=== PATIENT | male | born 1995 | race Caucasian/White ===

== ENCOUNTER 2017-08-14 11:53 | Emergency (ER) | payer MEDICAID ==
[~2017-08-14] VITALS: Wt 80.1 kg
[~2017-08-14 11:53] MED LIST: AZIT250T94 PO; CIPR500T4 PO; DICY20TA59 PO; DOCU-144 PO; FAMO-96 PO; HYDR-906 PO; IBUP-1542 PO; METR500T PO; NORC 5-325 PO; ONDA4TAB14 PO; OXYC-281 PO
[2017-08-14] MEDS ORDERED: IBUPROFEN 600 MG TAB PO ONE (12:30)
--- NOTE | 2017-08-14 12:37 | ERD ---
ER Documentation Chief Complaint Chief Complaint CHEST WALL PAIN X2 WEEKS HPI 21-year-old male who states that he is otherwise healthy with no prior medical history comes to emergency department with midsternal chest pain that started a week ago. The patient states that is right in the center of his chest pain to the sternum, described as sharp and achy and worse when he moves or takes a deep breath in or out. The pain is nonradiating, and exertional and the fact that it is worse if he tries to move. He has not had any fevers, chills, chest pain, shortness of breath. Patient denies IV drug abuse. ROS All systems reviewed and are negative except as per history of present illness. Medications Home Meds Active Scripts Ibuprofen* (Motrin*) 600 Mg Tab, 600 MG PO Q6, #30 TAB Prov:BLAIR JUDD PA-C 08/14/17 Ondansetron (Ondansetron Odt) 4 Mg Tab.rapdis, 4 MG PO Q8 Y for NAUSEA AND/OR VOMITING, #30 TAB Prov:LAURITA LOREDO NP 06/25/16 Metronidazole* (Flagyl*) 500 Mg Tablet, 500 MG PO TID for 10 Days, TAB Prov:BERNICEISLAURITA HARRINGTON NP 16 Ciprofloxacin Hcl* (Ciprofloxacin Hcl*) 500 Mg Tablet, 500 MG PO BID for 10 Days , TAB Prov:LAURITA LOREDO NP 16 Hydrocodone/Acetaminophen (Jasper 5-325 Tablet) 1 Each Tablet, 1 TAB PO Q6H Y for PAIN, #20 TAB Prov:LAURITA LOREDO NP 06/25/16 Ibuprofen* (Motrin*) 600 Mg Tab, 600 MG PO Q6H Y for PAIN AND OR ELEVATED TEMP, #30 TAB Prov:LAURITA LOREDO NP 16 Dicyclomine Hcl* (Bentyl*) 20 Mg Tablet, 20 MG PO QID, #20 TAB Prov:LAURITA LOREDO NP 06/25/16 Azithromycin* (Zithromax*) 250 Mg Tablet, 250 MG PO .AngiePACK DIRECTED, #6 TAB TAKE 500 MG (2 TABS) THE FIRST DAY THEN 250 MG (1 TAB) DAYS 2-5 Prov:BLAIR JUDD PA-C 10/04/15 Metronidazole* (Flagyl*) 500 Mg Tablet, 500 MG PO Q8 for 10 Days, TAB 0 Refills Prov:ISA FRIED. 04/18/14 Ciprofloxacin Hcl* (Ciprofloxacin Hcl*) 500 Mg Tablet, 500 MG PO BID for 10 Days , TAB 0 Refills Prov:ISA FRIED. 04/18/14 Docusate Sodium* (Colace*) 100 Mg Capsule, 100 MG PO BID, #60 CAP 0 Refills Prov:ISA FRIED. 04/18/14 Hydrocodone Bit-Acetaminophen* (Jasper*) 5-325 Tablet, 1 TAB PO Q4 for PAIN, #18 TAB 0 Refills Prov:ISA FRIED. 04/18/14 Reported Medications Famotidine* (Pepcid*) 20 Mg Tablet, 20 MG PO DAILY, TAB 04/16/14 Oxycodone Hcl-Acetaminophen* (Percocet*) 5-325 Mg Tablet, 1 TAB PO Q4H Y for PAIN LEVEL 6-10, TAB 04/16/14 Allergies Allergies: Coded Allergies: No Known Allergy (Unverified , 12/14/14) PMhx/Soc History of Surgery: Yes (cholecystectomy) Anesthesia Reaction: No Hx Neurological Disorder: No Hx Respiratory Disorders: No Hx Cardiac Disorders: No Hx Psychiatric Problems: No Hx Miscellaneous Medical Probl: No Hx Alcohol Use: No Hx Substance Use: No Hx Tobacco Use: No Physical Exam Vitals Vital Signs Date Time Temp Pulse Resp B/P Pulse Ox O2 Delivery O2 Flow Rate FiO2 08/14/17 11:55 97.3 74 18 136/79 98 Physical Exam General: Well-developed, well-nourished. The patient appears in no acute distress. HEENT: Head is normocephalic, atraumatic. No scleral icterus. Neck: Supple. Nontender. Lungs: Clear to auscultation. Normal air movement. Midsternal chest wall tenderness with palpation. No masses, no skin changes. Heart: Regular rate and rhythm. S1 and S2 are normal. No murmurs, gallops, or rubs. Abdomen: Soft, nontender, nondistended. Bowel sounds are normoactive. Extremities: No clubbing or cyanosis. Normal pulses. Moving extremities x 4. No weakness. Neurologic: Alert and oriented 3. No focal deficits. Skin: Normal turgor. No rash or lesions. Result Diagram: 08/14/17 1250 08/14/17 1250 Results 24 hrs Laboratory Tests Test 08/14/17 12:50 White Blood Count 7.210^3/ul Red Blood Count 5.7210^6/ul Hemoglobin 16.4g/dl Hematocrit 49.4% Mean Corpuscular Volume 86.4fl Mean Corpuscular Hemoglobin 28.7pg Mean Corpuscular Hemoglobin Concent 33.2g/dl Red Cell Distribution Width 13.4% Platelet Count 36082^3/UL Mean Platelet Volume 10.0fl Neutrophils % 59.6% Lymphocytes % 28.6% Monocytes % 7.2% Eosinophils % 3.6% Basophils % 0.6% Nucleated Red Blood Cells % 0.0/100WBC Neutrophils # 4.310^3/ul Lymphocytes # 2.110^3/ul Monocytes # 0.510^3/ul Eosinophils # 0.310^3/ul Basophils # 0.010^3/ul Nucleated Red Blood Cells # 0.010^3/ul Sodium Level 143mmol/L Potassium Level 4.1mmol/L Chloride Level 102mmol/L Carbon Dioxide Level 28mmol/L Anion Gap 17 Blood Urea Nitrogen 8mg/dl Creatinine 0.92mg/dl Glucose Level 107mg/dl Calcium Level 9.7mg/dl Troponin I < 0.012ng/ml Current Medications Medications (Trade) Dose Ordered Sig/Diamond Route PRN Reason Start Time Stop Time Status Last Admin Dose Admin Ibuprofen (Motrin) 600 mg ONCE ONCE PO 08/14/17 12:30 08/14/17 12:31 DC 08/14/17 12:36 12-lead EKG(interpreted by supervising physician): reviewed by Dr. Mckeon Rate/Rhythm: Normal Sinus Rhythm, with a rate of 67 QRS, ST, T-waves: Inverted T waves in leads III and aVF., no intervals, no dysrhythmias, no ectopy Impression: No evidence of ischemia or arrhythmia DIAGNOSTIC IMAGING REPORT Patient: JUNIOR NEDRA : 1995 Age: 21 Sex: M MR #: [id number] DOS: 08/14/17 1215 Ordering MD: BLAIR JUDD PA-C Location: [facility] Room/Bed: PROCEDURE: XR Chest. CLINICAL INDICATION: Chest pain, cough TECHNIQUE: Single frontal view of the chest was obtained COMPARISON: None FINDINGS: The heart and mediastinum are within normal limits. The lungs are clear. There is no pleural effusion or pneumothorax. The bones and soft tissue show no acute change. IMPRESSION: No definite abnormalities are identified. RPTAT:AAJJ Blane Garcia, Physician Date Time Electronically viewed and signed by Blane Garcia Physician on 08/14/2017 12: 56 [facility]/ CC: BLAIR JUDD PA-C Procedures/MDM ED COURSE: Patient was given ibuprofen for pain. MEDICAL DECISION MAKIN-year-old male comes emergency department with midsternal chest pain for 1 week, the patient's chest pain appears to be most likely musculoskeletal. It is in the center of his chest over the sternum and is reproducible with palpation. There are no skin changes, signs of infection. The patient's EKG is not concerning for acute ischemia, troponin is negative and chest x-ray is normal. There is no evidence of pneumothorax, pneumonia. Suspicion for pericarditis, endocarditis, myocarditis, dissection, acute coronary syndrome is low. Patient denies any history of fever, or cough. 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 He was given ibuprofen in the emergency department, I reevaluated him he states that his pain is much better at this time. He will be continued on ibuprofen, and advised to avoid lifting anything heavy for the next week. Departure Diagnosis: Primary Impression: Chest wall pain Condition: Good BLAIR JUDD PA-C Aug 14, 2017 12:37
--- NOTE | 2017-08-14 12:56 | RADRPT ---
PROCEDURE: XR Chest. CLINICAL INDICATION: Chest pain, cough TECHNIQUE: Single frontal view of the chest was obtained COMPARISON: None FINDINGS: The heart and mediastinum are within normal limits. The lungs are clear. There is no pleural effusion or pneumothorax. The bones and soft tissue show no acute change. IMPRESSION: No definite abnormalities are identified. RPTAT:AAJJ Blane Garcia Physician Date Time Electronically viewed and signed by Blane Garcia Physician on 08/14/2017 12:56 /
[2017-08-14 13:07] LABS: BASOPHILS % 0.6 % (0.0-2.0); EOSINOPHILS # 0.3 10^3/ul (0.0-0.5); EOSINOPHILS % 3.6 % (0.0-7.0); HEMATOCRIT 49.4 % (42.0-52.0); HEMOGLOBIN 16.4 g/dl (14.0-18.0); LYMPHOCYTES # 2.1 10^3/ul (0.8-2.9); LYMPHOCYTES % 28.6 % (15.0-51.0); MEAN CORPUSCULAR HEMOGLOBIN 28.7 pg (29.0-33.0); MEAN CORPUSCULAR HGB CONC 33.2 g/dl (32.0-37.0); MEAN CORPUSCULAR VOLUME 86.4 fl (82.0-101.0); MONOCYTE # 0.5 10^3/ul (0.3-0.9); MONOCYTES % 7.2 % (0.0-11.0); NEUTROPHIL # 4.3 10^3/ul (1.6-7.5); NEUTROPHILS % 59.6 % (39.0-77.0); PLATELET COUNT 329 10^3/UL (140-415); RED BLOOD COUNT 5.72 10^6/ul (4.70-6.10); RED CELL DISTRIBUTION WIDTH 13.4 % (11.5-14.5); WHITE BLOOD COUNT 7.2 10^3/ul (4.8-10.8)
[2017-08-14 13:24] LABS: ANION GAP 17 (8-16); BLOOD UREA NITROGEN 8 mg/dl (7-20); CALCIUM 9.7 mg/dl (8.4-10.2); CARBON DIOXIDE 28 mmol/L (21-31); CHLORIDE 102 mmol/L (97-110); CREATININE 0.92 mg/dl (0.61-1.24); GLUCOSE 107 mg/dl (70-220); POTASSIUM 4.1 mmol/L (3.5-5.1); SODIUM 143 mmol/L (135-144)
[2017-08-14 13:42] LABS: TROPONIN-I < 0.012 ng/ml (0.00-0.12)
[2017-08-14] MEDS ORDERED: IBUP-1542 PO (13:57)
== END 2017-08-14 14:06 | disposition home or self-care (01) ==
LOC: FTE 11:53
DX: R07.2 Precordial pain (principal)
CPT/HCPCS: 36415; 71010; 80048; 84484; 85025; Z7502; Z7610

== ENCOUNTER 2019-04-21 14:45 | Emergency (ER) | payer SELFPAY ==
[~2019-04-21] VITALS: Ht 162.6 cm; Wt 83.9 kg
[~2019-04-21 14:45] MED LIST changes: +AZIT250T PO; -AZIT250T94 PO; +CYCL10TA7 PO; +HYDR-4011 PO; -HYDR-906 PO; +IBUP800T48 PO
[2019-04-21 14:51] VITALS: BP 133/80; PULSE 85; RESP 18; Ht 162.6 cm; Wt 83.9 kg
[2019-04-21] MEDS ORDERED: IBUPROFEN 800 MG TAB PO ONE (16:00)
== END 2019-04-21 17:40 | disposition home or self-care (01) ==
LOC: FTE 14:45
DX: R00.2 Palpitations (principal); M54.6 Pain in thoracic spine
CPT/HCPCS: 93005